=== PATIENT | female | born 1985 | race African-American/Black ===

== ENCOUNTER 2022-10-15 10:30 | Emergency (ER) | payer BC, SELFPAY ==
[2022-10-15 11:12] VITALS: BP 116/82; PULSE 84; RESP 14; TEMP 36.5; O2SAT 100
[2022-10-15 11:38] LABS: Add Urine Microscopic? YES; Appearance Urine Clear (Clear); Bilirubin Urine Negative (Negative); Blood Urine Negative (Negative); Color Urine Light Yellow (Yellow); Glucose Urine UA Negative (Negative); Ketones Urine Trace mg/dL (Negative); Leukocyte Esterase Ur Negative LEU/UL (Negative); Nitrate Urine Negative (Negative); Protein Urine Negative (Negative); pH Urine 7.5 (5.0-9.0)
[2022-10-15 11:44] LABS: Calcium Oxalate Crystals Urine Many /hpf; Mucus Urine Heavy /lpf; Squamous Epithelial Cell Urine Occasional /hpf (Few); WBC Urine 0-3 /hpf
[2022-10-15 11:54] LABS: Influenza A QL RT-PCR Negative (Negative); Influenza B QL RT-PCR Negative (Negative); RSV RNA, RT-PCR Negative (Negative); SARS-CoV-2 RNA PCR Negative
--- NOTE | 2022-10-15 13:03 | ED.URI ---
HPI - URI/Sore Throat General Chief Complaint: Upper Respiratory Infection Stated Complaint: Body aches Time Seen by Provider: 10/15/22 11:03 History of Present Illness HPI Narrative: 36-year-old female presents emergency room for evaluation of right ear pain, sinus congestion, postnasal drip, body aches and increased mucus production. States symptoms been present for 5 days. Was seen in urgent care on Thursday diagnosed with an ear infection and was given a Z-Pee with a low-dose course of steroids. States has not seeing any improvement in her symptoms. Denies fever, shortness of breath or difficulty breathing. Related Data Allergies Allergy/AdvReac Type Severity Reaction Status Date / Time No Known Allergies Allergy Verified 10/15/22 12:09 Review of Systems Review of Systems: CONSTITUTIONAL: Denies fever, chills, or sweats. EYES: Denies visual changes, redness, or discharge. ENT: Reports rhinorrhea, congestion, sore throat, and right-sided otalgia. CARDIOVASCULAR: Denies chest pain, palpitations, or edema. RESPIRATORY: Denies cough or dyspnea. GASTROINTESTINAL: Denies abdominal pain, nausea, vomiting, or diarrhea. GENITOURINARY: Denies dysuria or hematuria. SKIN: Denies rash or itching. MUSCULOSKELETAL: Denies back pain, joint pain, or myalgia. NEUROLOGIC: Denies headache, numbness, dizziness, or weakness. PSYCHIATRIC: Denies anxiety or depression. Exam Narrative: GENERAL: Well-appearing, well-nourished, no physical limitations, and in no acute distress. HEAD: Normocephalic, atraumatic. EYES: Conjunctivae normal, PERRLA and EOMI. ENT: External nose normal, Nares clear, no rhinorrhea or epistaxis. Mucous membranes moist. Oropharynx without tonsillar hypertrophy exudate or other lesions. External ears normal, bilateral TMs normal bilaterally with clear effusion. Tenderness extends from anterior tragus along the jaw line NECK: Supple. No adenopathy or masses. CHEST: Clear to auscultation. No respiratory distress. No wheezes rales or rhonchi. HEART: Regular rate and rhythm. No murmur heard. Normal peripheral pulses. EXTREMITIES: Normal range of motion. No edema. No clubbing or cyanosis SKIN: Warm, dry, no rash. No noted wounds NEURO: No focal deficits. Alert and oriented x3. MAEW. CN's II-XI intact bilaterally, normal gait PSYCH: Cooperative. Normal mood and affect. Course Vital Signs Vital signs: Vital Signs Temperature 36.5 C 10/15/22 11:12 Pulse Rate 84 10/15/22 11:12 Respiratory Rate 14 10/15/22 11:12 Blood Pressure 116/82 10/15/22 11:12 Pulse Oximetry 100 10/15/22 11:12 Oxygen Delivery Room Air 10/15/22 11:12 Temperature 36.5 C 10/15/22 11:12 Pulse Rate 84 10/15/22 11:12 Respiratory Rate 14 10/15/22 11:12 Blood Pressure 116/82 10/15/22 11:12 Pulse Oximetry 100 10/15/22 11:12 Oxygen Delivery Room Air 10/15/22 11:12 MDM - URI/Sore Throat Lab Data Labs: Lab Results 10/15/22 10/15/22 Range/Units 11:14 11:24 Urine Color Light yellow (Yellow) Urine Appearance Clear (Clear) Urine pH 7.5 (5.0-9.0) Ur Specific Burns 1.020 (1.001-1.035) Urine Protein Negative (Negative) mg/dL Urine Glucose (UA) Negative (Negative) mg/dL Urine Ketones Trace (Negative) mg/dL Ur Blood (Man) Negative (Negative) Urine Nitrate Negative (Negative) Urine Bilirubin Negative (Negative) Urine Urobilinogen 1.0 (<2.0) mg/dL Leukocyte Esterase Rfl Negative (Negative) IRINA/UL Urine RBC 6-10 H (0-2) /hpf Urine WBC 0-3 /hpf Ur Squamous Epith Cells Occasional (Few) /hpf Calcium Oxalate Crystal Many (None) /hpf Urine Mucus Heavy H /lpf Influenza A (RT-PCR) Negative (Negative) Influenza B (RT-PCR) Negative (Negative) RSV (RT-PCR) Negative (Negative) SARS-CoV-2 RNA (RT-PCR) Negative UCG Bedside Result Negative Reference Range: Negative
== END 2022-10-15 13:22 | disposition home or self-care (01) ==
PROVIDERS: Emergency Provider Nurse Practitioner Family
DX: H69.91 Unspecified Eustachian tube disorder, right ear (principal); J06.9 Acute upper respiratory infection, unspecified; Z20.822 Contact with and (suspected) exposure to COVID-19
CPT/HCPCS: 81001; 81025; 87637; 96372; 99283; J1100